=== PATIENT | female | born 1980 | race Caucasian/White ===

== ENCOUNTER 2020-08-11 11:02 | Observation (INO) | payer BC ==
[2020-08-25] MEDS ORDERED: KEFZOL 1 GM/50 ML PREMIX** 1 GM/50 ML IVPB IV ONE (07:44)
[2020-08-25] MEDS ORDERED: Lactated Ringers 1,000 ML IV ONE ×3 (07:45→20:47)
[2020-08-25] MEDS ORDERED: KEFZOL 1 GM/50 ML PREMIX** 1 GM/50 ML IVPB IV SCH (07:45)
[2020-08-25] MEDS ORDERED: Lactated Ringers 1,000 ML IV SCH (08:00)
[2020-08-25] MEDS ORDERED: Decadron 4 MG INJ ONE ×2 (09:34→21:05)
[2020-08-25] MEDS ORDERED: TORAdol 30 mg Injection ONE ×2 (09:34)
[2020-08-25] MEDS ORDERED: SUBLIMAZE 100 MCG/2 ML ONE ×2 (09:34→21:05)
[2020-08-25] MEDS ORDERED: Zofran 4 MG/2 ML VIAL ONE ×3 (09:34→21:05)
[2020-08-25] MEDS ORDERED: Xylocaine-Mpf 2% 5 Ml Vial ONE (09:34)
[2020-08-25] MEDS ORDERED: BRIDION 200MG/2ML IV ONE (09:34)
[2020-08-25] MEDS ORDERED: DIPRIVAN 200 MG/20 ML IV ONE ×2 (09:34→21:05)
[2020-08-25] MEDS ORDERED: Zemuron 100 MG/10 ML ONE ×2 (09:34→21:07)
[2020-08-25] MEDS ORDERED: Versed 2 MG/2 ML Injection ONE (09:34)
[2020-08-25] MEDS ORDERED: Astramorph-Pf 5 MG/10 ML ONE (09:41)
[2020-08-25] MEDS ORDERED: Transderm Scop 1.5MG Patch TOP PRN (09:45)
[2020-08-25 09:55] LABS: ABO TYPING O; Antibody Screen NEGATIVE (NEGATIVE); RH TYPING POSITIVE
[2020-08-25] MEDS ORDERED: XYLOCAINE 2%/Epi 1:200000 20ML VIAL MPF ONE (10:29)
[2020-08-25] MEDS ORDERED: DEMEROL 50 MG ONE (11:54)
[2020-08-25] MEDS ORDERED: Compazine 10 MG/2 ML ONE (12:11)
[2020-08-25] MEDS ORDERED: Zofran 4 MG/2 ML VIAL IV PRN (13:08)
[2020-08-25] MEDS ORDERED: TORAdol 30 mg Injection IV PRN (13:09)
[2020-08-25 13:31] LABS: Appearance CLEAR (CLEAR); Bilirubin NEGATIVE (NEGATIVE); Blood NEGATIVE Ery/ul (0-5); Glucose NEGATIVE (NEGATIVE); Hyaline Casts 0-2 /LPF (0-2); Ketones NEGATIVE (NEGATIVE); Leukocyte Esterase NEGATIVE (NEGATIVE); Nitrite NEGATIVE (NEGATIVE); Protein,Urine Dip NEGATIVE (Negative); Specific Gravity 1.019 (1.005-1.025); Urobilinogen NEGATIVE mg/dL (0-1)
[2020-08-25] MEDS ORDERED: CYANOCOBALAMIN 2000 MCG SQ SCH (14:00)
[2020-08-25] MEDS ORDERED: Cyanocobalamin B-12 1000 MCG/ML SQ SCH (14:15)
[2020-08-25] MEDS ORDERED: MEDICATION INTERVENTION PO SCH (14:15)
[2020-08-25] MEDS: Mylicon 80MG PO SCH ×2 (14:31→22:50)
[2020-08-25] MEDS: Calcium 500MG W/Vit D Tablet PO SCH (14:32)
[2020-08-25] MEDS: Colace 100 MG PO SCH ×2 (14:33→22:50)
[2020-08-25] MEDS: Reglan 10 MG/2 ML IV SCH ×2 (14:33→22:50)
[2020-08-25] MEDS: KEFZOL 1 GM/50 ML PREMIX** 1 GM/50 ML IVPB IV SCH ×2 (14:34→22:50)
[2020-08-25] MEDS: Lactated Ringers 1,000 ML IV SCH (14:34)
[2020-08-25 16:51] LABS: Hematocrit 32.8 % (35-47); Hemoglobin 10.6 gm/dl (12.0-16.0); Mean Cell Volume 91.9 fl (78-100); Mean Corpuscular Hemoglobin 29.7 pg (26-32); Mean Corpuscular Hgb Concent. 32.3 g/dl (32-36); Mean Platelet Volume 9.6 fl (7.5-11.0); Platelet Count 301 K/mm3 (150-450); Red Blood Count 3.57 M/mm3 (4.1-5.4); Red Cell Distribution Width 12.4 % (11.5-14.0); White Blood Count 15.3 K/mm3 (4.0-10.5)
[2020-08-25] MEDS ORDERED: ASTRINGYN 8 GM TP ONE ×2 (18:27→18:31)
[2020-08-25] MEDS ORDERED: Pepcid 20 MG VIAL IV ONE (20:33)
[2020-08-25] MEDS ORDERED: Pepcid 20 MG VIAL IV STA (20:34)
[2020-08-25] MEDS ORDERED: Quelicin Fliptop 200 MG/10 ML ONE (21:05)
[2020-08-25] MEDS ORDERED: Ephedrine Sulfate 50 MG/ML ONE (21:17)
[2020-08-25 23:10] LABS: Hematocrit 28.1 % (35-47); Hemoglobin 8.9 gm/dl (12.0-16.0); Mean Cell Volume 92.1 fl (78-100); Mean Corpuscular Hemoglobin 29.2 pg (26-32); Mean Corpuscular Hgb Concent. 31.7 g/dl (32-36); Mean Platelet Volume 9.9 fl (7.5-11.0); Platelet Count 311 K/mm3 (150-450); Red Blood Count 3.05 M/mm3 (4.1-5.4); Red Cell Distribution Width 12.2 % (11.5-14.0); White Blood Count 16.8 K/mm3 (4.0-10.5)
[2020-08-25 23:49] LABS: Slide Review NO
[2020-08-26] MEDS: Reglan 10 MG/2 ML IV SCH ×2 (05:04→13:17)
[2020-08-26] MEDS: Lactated Ringers 1,000 ML IV SCH (05:04)
[2020-08-26] MEDS: Mylicon 80MG PO SCH ×2 (05:04→13:17)
[2020-08-26 05:28] LABS: Hematocrit 22.7 % (35-47); Hemoglobin 7.2 gm/dl (12.0-16.0); Mean Cell Volume 92.7 fl (78-100); Mean Corpuscular Hemoglobin 29.4 pg (26-32); Mean Corpuscular Hgb Concent. 31.7 g/dl (32-36); Mean Platelet Volume 10.4 fl (7.5-11.0); Platelet Count 258 K/mm3 (150-450); Red Blood Count 2.45 M/mm3 (4.1-5.4); Red Cell Distribution Width 12.1 % (11.5-14.0); White Blood Count 13.3 K/mm3 (4.0-10.5)
[2020-08-26 05:47] LABS: ALBUMIN 2.4 g/dL (3.5-5.0); ALKALINE PHOSPHATASE 52 U/L (38-126); ANION GAP 7.7 MEQ/L (5-15); BLOOD UREA NITROGEN 9 mg/dL (7-17); CHLORIDE 105 mmol/L (98-107); Calcium 8.1 mg/dL (8.4-10.2); Carbon Dioxide 24 mmol/L (22-30); Creatinine 1 0.58 mg/dL (0.52-1.04); EST GLOMERULAR FILTRATION RATE > 60.0 ML/MIN; Glucose 135 mg/dL (74-106); Potassium 4.4 mmol/L (3.5-5.1); SGOT/AST 94 U/L (14-36); SGPT/ALT 98 U/L (0-35); SODIUM 132 mmol/L (137-145); Total Protein 4.7 g/dL (6.3-8.2)
[2020-08-26] MEDS ORDERED: Sodium Chloride 0.9% 1000 ML 1,000 ML IV SCH (07:45)
[2020-08-26 07:54] LABS: CROSS MATCH (PRBC) COMPATIBLE (COMPATIBLE)
[2020-08-26] MEDS ORDERED: ENOXAPARIN SODIUM SQ SCH (08:00)
[2020-08-26] MEDS ORDERED: NORCO 5/325 MG PO PRN ×2 (08:33→13:03)
[2020-08-26] MEDS: Colace 100 MG PO SCH (09:55)
[2020-08-26] MEDS: Calcium 500MG W/Vit D Tablet PO SCH (09:55)
[2020-08-26] MEDS ORDERED: VIT B12 PO SCH (10:00)
[2020-08-26] MEDS ORDERED: VITAMIN D3 PO SCH (10:00)
[2020-08-26] MEDS ORDERED: VIT C PO SCH (10:00)
[2020-08-26] MEDS ORDERED: CALCIUM CITRATE PO SCH (10:00)
[2020-08-26] MEDS ORDERED: FOLIC PO SCH (10:00)
[2020-08-26] MEDS ORDERED: IRON CARB PO SCH (10:00)
--- NOTE | 2020-08-26 10:38 | OP ---
SURGERY DATE/TIME: 08/25/2020 0951 PREOPERATIVE DIAGNOSIS: Abnormal uterine bleeding with failed ablation and dyspareunia. POSTOPERATIVE DIAGNOSIS: Abnormal uterine bleeding with failed ablation and dyspareunia. PROCEDURES: 1) Laparotomy. 2) Total abdominal hysterectomy. 3) Bilateral salpingectomy. SURGEON: Ricki Stockton D.O. AIR VALUE TESTER: Willy Anaya surgical specialist. ANESTHESIA: General. ESTIMATED BLOOD LOSS: 200 cc. COMPLICATIONS: None. INDICATIONS: The risks, benefits, indications and alternatives of the procedure were reviewed with the patient prior to procedure. The patient understood the risk of infection, bleeding, bowel injury, bladder injury, ureteral injury, incisional hernia, pelvic infection, thromboembolic disorder, decreased sex drive that can be associated with this surgery. However, desires to have this procedure as a possible need to alleviate her current medical condition. DESCRIPTION OF PROCEDURE AND FINDINGS: At this point the patient is taken to the operating room where she was placed in supine position, given general anesthesia, prepared and draped in the usual sterile fashion. A Pfannenstiel incision was made approximately 2 cm above the symphysis pubis and extended sharply to the rectus fascia. The fascia was then incised bilaterally with curved Valenzuela scissors and the muscles of the anterior abdominal wall were in the midline by sharp and blunt dissection. The peritoneum was then grasped between two pickups elevated and entered sharply with Metzenbaum scissors. The pelvis is then examined and noted to have an approximately 8 week size uterus. An O'Mauricio-O'Louise retractor was placed into the incision and bowel packed away with moist laparotomy sponges. Two Hayder clamps were placed on the cornua and used for retraction. At this point the LigaSure was then used and was placed over the left utero-ovarian ligament where it was clamped, coagulated and cut taken down to the round ligament on the left side and taken towards the uterine vessel. The anterior lip of the broad ligament was incised along the bladder reflection to the midline on its side. The bladder was then gently dissected off the lower uterine segment and the cervix with a sponge stick. At this point uterine artery was skeletonized and was clamped, coagulated and cut with LigaSure and again hemostasis assured. The same procedure was performed on the right side where LigaSure was placed over the right utero-ovarian ligament where it was clamped, coagulated and cut taken down to the round ligament towards the uterine vasculature where the uterine artery was skeletonized and clamped with the LigaSure coagulated and cut. Again, the bladder was then gently dissected off the lower uterine segment and the cervix with a sponge stick. From this point uterosacral ligaments were clamped on both sides, transected and suture ligated in similar fashion. At this point the cervix and uterus were then amputated with cautery. The vaginal cuff angles were closed with figure-of-8 sutures of 0 Vicryl and were transfixed to the lateral Cardinal and uterosacral ligaments. The remainder of the vaginal cuff was closed with a series of interrupted 0 Vicryl figure-of-8 sutures. Hemostasis was assured. The pelvis was then irrigated with copiously with warm normal saline. All sponge, lap, needle and instruments were then removed from the patient's abdomen. From this point bilateral fallopian tubes were excised using LigaSure on both adnexal regions where the bilateral ovaries appeared to be within normal limits with no abnormalities that were noted and were not removed during the procedure. Again all lap, instrument, sponge and instruments were removed from the patient's abdomen. The fascia was then closed with running 0 Vicryl. Hemostasis was assured. The skin was closed with absorbable solis called INSORB. Sponge, lap, needle and instrument counts were correct x2. The patient was then taken to the recovery room in stable condition.
--- NOTE | 2020-08-26 11:00 | OP ---
SURGERY DATE/TIME: 08/25/20202104 PREOPERATIVE DIAGNOSIS: Vaginal bleeding status post total abdominal hysterectomy. POSTOPERATIVE DIAGNOSIS: Vaginal cuff bleeding status post total abdominal hysterectomy. PROCEDURE: Repair of vaginal cuff. SURGEON: Ricki Stockton D.O. ANESTHESIA: General. ESTIMATED BLOOD LOSS: 50 cc. COMPLICATIONS: None. INDICATIONS: The risks, benefits, indications and alternatives of the procedure were reviewed with the patient prior to procedure. The patient understood the risk of infection, bleeding, bowel injury, bladder injury, ureteral injury and continued vaginal bleeding associated with this surgery as well as thromboembolic disorder. After being called into the patient's room on the floor, the patient was having continuous vaginal bleeding where packing had been placed along with Monsel solution and Fibrillar. However with continued packing, the patient was noted to have continued vaginal bleeding. At this time it was discussed with the patient the procedure going to the OR for re-evaluation of vaginal bleeding and possible repair of vaginal cuff. DESCRIPTION OF PROCEDURE AND FINDINGS: From this point the patient taken to the operating room where risks and benefits of surgery were discussed with the patient. The patient was taken to the OR, given general anesthesia, placed in dorsal lithotomy position, prepped and draped in the usual sterile fashion. A weighted speculum was then placed into the patient's vagina and at this point the vaginal cuff was noted to be bleeding. Allis clamps were placed on either side of the vaginal cuff where it had been noted to be bleeding and figure-of-8 sutures of 0 Vicryl were placed from her right side towards her left side whereas at this point there was no bleeding that was noted after complete cuff closure. After waiting approximately five to ten minutes with no bleeding noted. At this point the patient was then taken out of the dorsal lithotomy position, was taken out of anesthesia and was taken to the recovery room in stable condition. All instruments and laps were accounted for x2.
--- NOTE | 2020-08-26 11:00 | XRAY ---
Indication: Abnormal bleeding. Status post hysterectomy one day earlier. Two-dimensional transabdominal pelvic sonogram performed. Comparison: November 19, 2019. Uterus and both ovaries are not visualized presumed total hysterectomy. There is no solid/cystic pelvic mass or fluid collection. Impression: Hysterectomy in a otherwise negative transabdominal pelvic sonogram.
[2020-08-26 12:14] VITALS: BP 96/53; PULSE 78; O2SAT 96
[2020-08-26] MEDS ORDERED: FERREX 150 PO SCH (13:00)
[2020-08-26 13:45] LABS: Hematocrit 28.9 % (35-47); Hemoglobin 9.2 gm/dl (12.0-16.0)
== END 2020-08-26 15:45 | disposition home or self-care (01) ==
LOC: MED SURG 08-25 07:19
PROVIDERS: ADMIT Obstetrics & Gynecology; ATTEND Obstetrics & Gynecology
DX: N93.9 Abnormal uterine and vaginal bleeding, unspecified (principal); N94.10 Unspecified dyspareunia; N99.820 Postprocedural hemorrhage of a genitourinary system organ or structure following a genitourinary system procedure
CPT/HCPCS: 36415; 36430; 64488; 76856; 76937; 76942; 80053; 81001; 84703; 85014; 85018; 85027; 86850; 86900; 86901; 86922; 87077; 87086; 87186; 88307; 99140; G0378; J0330; J0690; J1100; J1650; J1885; J2175; J2250; J2274; J2405; J2704; J3010; P9016; A9270-GY